=== PATIENT | male | born 1985 | race African-American/Black ===

== ENCOUNTER 2016-09-01 13:48 | Emergency (ER) | payer MEDICARE, MEDICAID ==
[2016-09-01 13:55] VITALS: BP 182/124
--- NOTE | 2016-09-01 14:18 | UC ---
Knee Pain HPI - HPI Summary HPI Summary: Pt is nonverbal with multiple medical chronic problems. Has been living with his mom now (versus a fdc) for 2 months. Goes to a day program and staff noticed pt is walking unsteadily, favoring L side. There have been small blisters on L foot for a week or so, probably from a change in shoes, but mother noticed l knee swollen today. No witnessed trauma. - History of Current Complaint Chief Complaint: UCLowerExtremity Stated Complaint: LEG COMPLAINT Time Seen by Provider: 09/01/16 13:55 Hx Obtained From: Family/Regional Director Of Admissions Hx From Patient Unobtainable Due To: Altered Mental Status Onset/Duration: Lasting Hours Severity Initially: Mild Severity Currently: Mild Character: Unable to Describe Aggravating Factor(s): Nothing Alleviating Factor(s): Nothing Associated Signs And Symptoms: Positive: Swelling Able to Bear Weight: Yes - Allergies/Home Medications Allergies/Adverse Reactions: Allergies Allergy/AdvReac Type Severity Reaction Status Date / Time Melatonin AdvReac Severe Altered Verified 11/18/15 11:09 Mental Status Home Medications: Home Medications Bp Med 09/01/16 [History] Thyroid Med 09/01/16 [History] PMH/Surg Hx/FS Hx/Imm Hx Endocrine History: Thyroid Disease Cardiovascular History: Hypertension Respiratory History: Asthma Neurological History: Seizures - Surgical History Surgical History: Unable to Obtain/Confirm Surgery Procedure, Year, and Place: mother did not have clear hx - Social History Occupation: Disabled Lives: With Family Alcohol Use: None Substance Use Type: None Smoking Status (MU): Never Smoked Tobacco Review of Systems Constitutional: Negative Skin: Negative Eyes: Negative ENT: Negative Respiratory: Negative Cardiovascular: Negative Gastrointestinal: Negative Genitourinary: Negative Motor: Negative Neurovascular: Negative Musculoskeletal: Arthralgia, Decreased ROM - "wouldn't bend L knee at day program" Neurological: Negative Psychological: Negative All Other Systems Reviewed And Are Negative: Yes Physical Exam Triage Information Reviewed: Yes Appearance: No Pain Distress, Well-Nourished Vital Signs: Initial Vital Signs Temp 99.0 F 09/01/16 13:50 Pulse 102 09/01/16 13:50 Resp 18 09/01/16 13:50 BP 182/124 09/01/16 13:50 Pulse Ox 97 09/01/16 13:50 Vital Signs Reviewed: Yes Eye Exam: Other - pt does not spontaneously open eyes for exam ENT: Positive: Other: - bilat cerumen impaction. Negative: Nasal congestion, Nasal drainage Dental Exam: Other - edentulous Neck: Positive: Supple, No Lymphadenopathy Respiratory Exam: Normal Respiratory: Positive: Lungs clear, Normal breath sounds, No respiratory distress, No accessory muscle use Cardiovascular: Positive: No Murmur, Tachycardia Musculoskeletal Exam: Other - gait favoring L side, willing to walk without hesitation Musculoskeletal: Positive: ROM Intact Neurological: Positive: Muscle Tone Normal Psychological Exam: Other - baseline, per mom Skin Exam: Other - crescent-shaped bruise on L thigh, right above knee. 2 pale blisters L feet on high pressure points. Knee Pain Course/Dx - Differential Dx/Diagnosis Provider Diagnoses: L knee pain Discharge - Discharge Plan Condition: Stable Disposition: HOME Prescriptions: Ibuprofen ADULT LIQ* [Motrin LIQ ADULT*] 600 mg PO TID #630 ml Patient Education Materials: Knee Pain (ED) Referrals: Alexa Shin MD [Primary Care Provider] - Additional Instructions: Continue to keep Chato in his wider, well-fitting shoes. The foot blisters should resolve with time. Come back right away if there is redness or streaking from the spots. I have sent bloodwork to evaluate his knee swelling. See your doctor next week for a recheck.
--- NOTE | 2016-09-01 15:05 | RAD ---
Indication: 1 day LEFT knee pain and swelling without known injury. Limping. Comparison: No relevant prior exams available on the [facility] PACS for comparison. Technique: LEFT knee: AP, tunnel, crosstable lateral, sunrise views. REPORT AND IMPRESSION: Negative for effusion, fracture, or malalignment. Bone density appears decreased throughout. Mild anterior soft tissue swelling.
[2016-09-01 18:44] LABS: Hematocrit 42 % (42-52); Hemoglobin 13.7 g/dl (14.0-18.0); Mean Corpuscular HGB Conc 32 g/dl (31-36); Mean Corpuscular Hemoglobin 29 pg (27-31); Mean Corpuscular Volume 88 fL (80-94); Mean Platelet Volume 7 um3 (7.4-10.4); Red Blood Count 4.82 10^6/ul (4.0-5.4); Red Cell Distribution Width 14 % (10.5-15); White Blood Count 4.9 10^3/ul (3.5-10.8)
[2016-09-01 19:46] LABS: Erythrocyte Sed Rate 10 mm/Hr (0-14)
== END 2016-09-01 15:10 | disposition home or self-care (01) ==
LOC: UCEAST 13:48
DX: M25.562 Pain in left knee (principal); S70.12XA Contusion of left thigh, initial encounter; S90.822A Blister (nonthermal), left foot, initial encounter; X58.XXXA Exposure to other specified factors, initial encounter; Y93.9 Activity, unspecified; Y92.9 Unspecified place or not applicable; H61.23 Impacted cerumen, bilateral; E07.9 Disorder of thyroid, unspecified; I10 Essential (primary) hypertension; J45.909 Unspecified asthma, uncomplicated; R56.9 Unspecified convulsions
CPT/HCPCS: 36415; 84550; 85025; 85652; 86618; 99212; G0463

== ENCOUNTER 2017-12-27 11:36 | Emergency (ER) | payer MEDICARE, MEDICAID ==
[2017-12-27 11:51] VITALS: BP 142/94
--- NOTE | 2017-12-27 12:12 | UC ---
Eye Complaint HPI - HPI Summary HPI Summary: Chato was noted to have right upper eyelid swelling today. It hasn't appeared to bother him very much according to his mom. She is not aware of any trauma. - History of Current Complaint Chief Complaint: Younge Stated Complaint: EYE COMPLAINT Time Seen by Provider: 12/27/17 11:48 Pain Intensity: 0 - Allergies/Home Medications Allergies/Adverse Reactions: Allergies Allergy/AdvReac Type Severity Reaction Status Date / Time melatonin Allergy Altered Verified 12/27/17 11:51 Mental Status Home Medications: Home Medications Acetaminophen ADULT LIQ* [Tylenol ADULT LIQ*] 650 mg PO Q4H PRN 12/27/17 [ History Confirmed 12/27/17] Levothyroxine Sodium [Levoxyl] 25 mcg PO 12/27/17 [History] Losartan TAB* [Cozaar TAB*] 25 mg PO DAILY 12/27/17 [History Confirmed 12/27/17] diphenhydrAMINE HCl [Benadryl LIQUID 12.5 MG/5 ML] 12.5 mg PO 12/27/17 [History] PMH/Surg Hx/FS Hx/Imm Hx - Surgical History Surgical History: Unable to Obtain/Confirm Surgery Procedure, Year, and Place: mother did not have clear hx - Social History Alcohol Use: None Substance Use Type: None Smoking Status (MU): Never Smoked Tobacco Review of Systems Constitutional: Negative Skin: Negative Eyes: Other - limited evaluation All Other Systems Reviewed And Are Negative: No Physical Exam - Summary Physical Exam Summary: Katie was nontoxic in appearance and his vital signs are stable. He had an obviously swollen right upper eyelid Triage Information Reviewed: Yes Appearance: Well-Appearing, No Pain Distress Vital Signs: Initial Vital Signs Temp 99.0 F 12/27/17 11:46 Pulse 88 12/27/17 11:46 Resp 18 12/27/17 11:46 BP 142/94 12/27/17 11:46 Pulse Ox 97 12/27/17 11:46 Eyes: Positive: Conjunctiva Clear - Difficult to see his eye He is not very coperative. He has some D/C on the lids and lashes of his right eye and not his left. The upper eyelid is swollen but not erythematous or tender. ENT: Positive: Normal ENT inspection Neck exam: Normal Neck: Positive: Supple Cardiovascular Exam: Normal Abdominal Exam: Normal Skin Exam: Normal Eye Complaint Course/Dx - Course Course Of Treatment: Chato presents a difficult evaluation but this is likely secondary to an infection. I recommended eyedrops as a trial to see if it clears it up. If not him if need to follow-up with an x ray developing machine operator. - Differential Dx/Diagnosis Provider Diagnoses: Conjunctivitis Discharge - Sign-Out/Discharge Documenting (check all that apply): Patient Departure All imaging exams completed and their final reports reviewed: Yes - Discharge Plan Condition: Stable Disposition: HOME Referrals: Alexa Shin MD [Primary Care Provider] - - Billing Disposition and Condition Condition: STABLE Disposition: Home
== END 2017-12-27 12:20 | disposition home or self-care (01) ==
LOC: UCEAST 11:36
DX: H10.9 Unspecified conjunctivitis (principal); Z88.8 Allergy status to other drugs, medicaments and biological substances
CPT/HCPCS: 99212; G0463

== ENCOUNTER 2018-11-30 10:37 | Emergency (ER) | payer MEDICARE, MEDICAID ==
--- NOTE | 2018-11-30 11:23 | UC ---
Complaint Male HPI - HPI Summary HPI Summary: 33 yo male presents, accompanied by mother and ampoule filler. Pt is nonverbal, thus the history is provided by his mother who takes care of him. Mom tells me that last night and this morning she noticed a red enlarged bump to pts right groin. Seems larger today. Pt seems bothered by it. No known injury. Pt wears a diaper and has been urinating as usual. No fevers. Is eating and drinking as usual - History of Current Complaint Chief Complaint: UCGU Stated Complaint: PERSONAL Time Seen by Provider: 11/30/18 11:22 Hx Obtained From: Family/Counseling Aide Hx From Patient Unobtainable Due To: Altered Mental Status Onset/Duration: Sudden Onset Severity Initially: Mild Severity Currently: Mild Pain Intensity: 3 Pain Scale Used: 0-10 Numeric - Allergies/Home Medications Allergies/Adverse Reactions: Allergies Allergy/AdvReac Type Severity Reaction Status Date / Time melatonin Allergy Altered Verified 11/30/18 11:11 Mental Status PMH/Surg Hx/FS Hx/Imm Hx - Additional Past Medical History Additional PMH: Intellectual disability Endocrine History: Hypothyroidism Cardiovascular History: Hypertension - Surgical History Surgical History: Yes Surgery Procedure, Year, and Place: mother did not have clear hx, teeth extraction - Family History Known Family History: Positive: Hypertension - Social History Occupation: Disabled Lives: With Family Alcohol Use: None Substance Use Type: None Smoking Status (MU): Never Smoked Tobacco Review of Systems All Other Systems Reviewed And Are Negative: No Constitutional: Positive: Negative Skin: Positive: Other - Abscess groin Respiratory: Positive: Negative Cardiovascular: Positive: Negative Neurovascular: Positive: Negative Neurological: Positive: Negative Psychological: Positive: Negative Physical Exam - Summary Physical Exam Summary: GENERAL: NAD. WDWN. No pain distress. SKIN: RIGHT mons pubis - 3.0cm area of mild erythema, induration, and edema. Mild TTP. No open wound, drainage, or streaking. CHEST: No accessory muscle use. Breathing comfortably and in no distress. CV: Pulses intact. Cap refill <2seconds NEURO: Alert. PSYCH: Age appropriate behavior. Triage Information Reviewed: Yes Vital Signs: Initial Vital Signs Temp 98.2 F 11/30/18 11:03 Pulse 100 11/30/18 11:03 Resp 18 11/30/18 11:03 BP 153/133 11/30/18 11:03 Pulse Ox 98 11/30/18 11:03 Vital Signs Reviewed: Yes Procedures - Incision and Drainage right groin Anesthesia: Local, Lidocaine Instrument(s): Scalpel - #11 Packing: Other - None Complaint Male Course/Dx - Course Course Of Treatment: The procedure was explained to the mother and all questions were answered. A time out was performed, witnessed, and signed. The area was cleansed with an alcohol pad. 2mL of 2% lidocaine without epi was administered and good anesthetization was achieved. A #11 blade was used to make a 5mm incision as the central most part of the abscess and scant purulent matter was able to be expressed. Hemostasis achieved and area bandaged with a telfa. Pt tolerated procedure well. Will start him on Clindamycin - Differential Dx/Diagnosis Provider Diagnosis: Abscess, groin Discharge ED - Sign-Out/Discharge Documenting (check all that apply): Patient Departure All imaging exams completed and their final reports reviewed: No Studies - Discharge Plan Condition: Stable Disposition: HOME Prescriptions: Clindamycin HCl 300 mg PO TID #21 capsule Patient Education Materials: Abscess (ED) Referrals: Alexa Shin MD [Primary Care Provider] - Additional Instructions: If you develop a fever, shortness of breath, chest pain, new or worsening symptoms - please call your PCP or go to the ED immediately. Your blood pressure was high at todays visit. Please see your primary provider within 4 weeks for recheck and re-evaluation. 1) Apply a warm compress to the area intermittently throughout the day 2) If the area comes to a "head" or becomes enlarged - please return to have this lanced and drained - Billing Disposition and Condition Condition: STABLE Disposition: Home
[2018-11-30] MEDS ORDERED: Lidocaine 2% PF * 5 ML VIAL INJ ONE (11:31)
[2018-11-30 12:07] VITALS: BP 122/78
== END 2018-11-30 12:15 | disposition home or self-care (01) ==
LOC: UCEAST 10:37
DX: L02.214 Cutaneous abscess of groin (principal); I10 Essential (primary) hypertension; Z88.8 Allergy status to other drugs, medicaments and biological substances
CPT/HCPCS: 10060; 99213; G0463